=== PATIENT | female | born 2000 | race Caucasian/White ===

== ENCOUNTER 2021-03-02 06:05 | Day surgery (SDC) | payer OTHER ==
[2021-02-28 11:22] VITALS: BMI 30.1
[2021-03-02] MEDS ORDERED: LOCK ITEM NR ONE (06:40)
[2021-03-02] MEDS ORDERED: MIDAZOLAM HCL 2 MG/2 ML SINGLE DOSE VIAL ONE (06:51)
[2021-03-02] MEDS ORDERED: BUPIVACAINE LIPOSOME/PF (EXPAREL) 266 MG/20 ML VIAL ONE (06:51)
[2021-03-02] MEDS ORDERED: BUPIVACAINE HCL 50 ML ONE (06:51)
[2021-03-02] MEDS ORDERED: ceFAZolin SODIUM 1 GM VIAL ONE (07:13)
[2021-03-02] MEDS ORDERED: fentaNYL CITRATE 250 MCG/5 ML VIAL ONE (07:13)
[2021-03-02] MEDS ORDERED: PROPOFOL 20 ML ONE (07:13)
[2021-03-02] MEDS ORDERED: DEXAMETHASONE SOD PHOSPHATE 4 MG/1 ML VIAL ONE ×2 (07:13→09:18)
[2021-03-02] MEDS ORDERED: ONDANSETRON 4 MG/2 ML VIAL ONE ×2 (07:13→09:18)
[2021-03-02] MEDS ORDERED: SUCCINYLCHOLINE CHLORIDE 200 MG/10 ML SYRINGE ONE (07:13)
[2021-03-02] MEDS ORDERED: VANCOMYCIN 1,000 MG VIAL (RESTRICTED TO ID ONLY) ONE (07:15)
[2021-03-02] MEDS ORDERED: EPINEPHrine 1:1,000 1 MG/1 ML - 30ML VIAL (INJECTION) ONE (07:16)
[2021-03-02] MEDS ORDERED: BUPIVACAINE HCL/EPINEPHRINE/PF 30 ML VIAL IJ ONE ×2 (08:13→09:37)
[2021-03-02] MEDS ORDERED: HYDROmorphone HCL/PF 1 MG/ML VIAL ONE (08:51)
[2021-03-02] MEDS ORDERED: oxyCODONE HCL 5 MG TABLET PO PRN ×2 (09:26)
[2021-03-02] MEDS ORDERED: ONDANSETRON 4 MG/2 ML VIAL IVPUSH PRN (09:26)
[2021-03-02] MEDS ORDERED: ACETAMINOPHEN 1000 MG/100 ML VIAL (NON FORMULARY) IVPB ONE (09:26)
[2021-03-02] MEDS ORDERED: LACTATED RINGERS SOLUTION 1,000 ML IV SCH (09:30)
[2021-03-02] MEDS ORDERED: ACETAMINOPHEN INJECTION 100 ML IVPB ONE (09:47)
[2021-03-02 11:52] VITALS: TEMP 97.8
[2021-03-02] MEDS ORDERED: KETOROLAC TROMETHAMINE 30 MG/1 ML VIAL IVPUSH ONE (12:00)
[2021-03-02] MEDS ORDERED: oxyCODONE HCL 5 MG TABLET ONE (13:19)
[2021-03-02] MEDS ORDERED: KETOROLAC TROMETHAMINE 30 MG/1 ML VIAL ONE (13:19)
[2021-03-02 14:56] VITALS: BP 144/72; PULSE 74
== END 2021-03-02 14:00 | disposition home or self-care (01) ==
LOC: FASU 06:05
PROVIDERS: ATTEND Orthopaedic Surgery
PROC: 0MRN47Z Replacement of Right Knee Bursa and Ligament with Autologous Tissue Substitute, Percutaneous Endoscopic Approach (ICD-10-PCS; principal; 2021-03-02 08:15)
DX: M23.52 Chronic instability of knee, left knee (principal); S83.512A Sprain of anterior cruciate ligament of left knee, initial encounter; X58.XXXA Exposure to other specified factors, initial encounter; Y93.9 Activity, unspecified; Y92.9 Unspecified place or not applicable
CPT/HCPCS: 29888; C1713; 81025; 94760; 97116-GP; J0131